=== PATIENT | male | born 1985 | race African-American/Black ===

== ENCOUNTER → 2020-01-01 14:14 | Outpatient (CLI) | payer OTHER, SELFPAY ==
[2020-01-01 14:54] LABS: Alanine Aminotransferase 19 IU/L (<50); Albumin 4.5 g/dL (3.5-5.0); Albumin Globulin Ratio 1.2 (1.0-2.8); Alkaline Phosphatase 70 U/L (38-126); Aspartate Aminotransferase 25 IU/L (17-59); BUN Creatinine Ratio 13.3 (6-22); Bilirubin Total 0.7 mg/dL (0.2-1.3); Blood Urea Nitrogen 14 mg/dL (9-20); Carbon Dioxide 24 mmol/L (22-32); Chloride 108 mmol/L (98-107); Cholesterol 224 mg/dL (140-199); Estimated Glomerular Filt Rate > 60.0 mL/min (>60); Globulin 3.7 g/dL (1.7-4.1); Glucose 89 mg/dL (70-100); HDL Cholesterol 41 mg/dL (40-60); HEMOLYSIS 15 (0-50); LDL Cholesterol Calculated 140 mg/dL (<100); Potassium 4.8 mmol/L (3.4-5.1); Sodium 138 mmol/L (137-145); Total Protein 8.2 g/dL (6.3-8.2); Triglycerides 213 mg/dL (35-150)
== END ==
PROVIDERS: PCP Internal Medicine; Referring Provider Internal Medicine; Visit Provider Internal Medicine
DX: Z13.1 Encounter for screening for diabetes mellitus (principal); Z13.220 Encounter for screening for lipoid disorders; Z13.6 Encounter for screening for cardiovascular disorders
CPT/HCPCS: 36415; 80053; 80061

== ENCOUNTER → 2020-03-08 08:58 | Outpatient (CLI) | payer OTHER, SELFPAY ==
[2020-03-08 13:34] LABS: COVID19 -Nasal RAPID Negative (Negative)
== END ==
PROVIDERS: PCP Internal Medicine; Visit Provider Physician Assistant
DX: Z01.812 Encounter for preprocedural laboratory examination (principal)
CPT/HCPCS: 87635

== ENCOUNTER 2020-03-11 06:36 | Day surgery (SDC) | payer OTHER, SELFPAY ==
[2020-03-07 11:47] VITALS: BMI 40.3
[2020-03-11 07:07] VITALS: BP 148/94; PULSE 88; RESP 16; TEMP 37.1; O2SAT 100; BMI 40.3
--- NOTE | 2020-03-11 07:18 | PM.PREOP ---
Pre-operative Note Interval Note History & Physical reviewed/Exam performed by Physician: Yes Changes to H&P: No
[2020-03-11] MEDS: LACTATED RINGERS 1,000 ML 42 ML IV ×2 (07:20→08:23)
--- NOTE | 2020-03-11 07:20 | SUR.OPER ---
Supine on padded OR bed, head on pillow, arms secured on padded arm boards at <90 degrees abduction, legs uncrossed, safety belt at thigh, tape over blanket over lower legs.
[2020-03-11] MEDS: CEFAZOLIN VIAL 3 GM in SODIUM CHLORIDE 0.9% 100 ML 200 ML IV (07:40)
[2020-03-11] MEDS: BUPIVACAINE LIPOSOME 266 MG/20 ML VIAL INJ (07:55)
[2020-03-11] MEDS: BACITRACIN OINT 0.9 GM PCKT 2 APPLIC TOP (08:37)
--- NOTE | 2020-03-11 08:43 | PM.OP.1 ---
Operative Date/Time/Diagnoses Date of procedure: 03/11/20 Time of procedure: 08:43 Pre-op diagnosis: 1. Phimosis 2. Balanitis Post-op diagnosis: same Procedure & Clinicians Procedure: 1. Adult circumcision Same procedure as scheduled: Yes Indications: 1. Phimosis 2. Balanitis Surgeon: Mya Rosas Click Yes if Unassisted: Yes Anesthesia Type: General and Local (1.33% Exparel) Operative Notes Findings: Acute and chronic inflammatory changes of the glans and inner preputial skin surfaces. Closure Type: primary Specimen(s): none sent Estimated Blood Loss (mL): 5 Blood products transfused: none Tourniquet time (min): 0 Procedure in detail: Patient was positioned supine was administered general anesthesia. The abdomen genitalia and groin were then prepped and draped in sterile fashion. A dorsal penile and circumferential cutaneous block was then performed with local anesthetic. Next, circumcised incisions were made at appropriate locations on the inner and external preputial skin surfaces. The intervening subcutaneous tissue was using a combination of blunt and cautery technique. Hemostasis was attained with electrocautery. Using 4-0 chromic for interrupted approximating sutures were placed at the 12, 3, 6, and 9 o'clock positions. Then the same suture was used to reapproximate the inner and external preputial skin edges utilizing a running vertical mattress. A multilayer dressing was applied as follows: An inner layer around the incision of Xeroform, followed by a non constricting wrap of Kerlix gauze, followed by a non constricting layer of Coban, and then finally 1 in clear plastic tape and a non constricting manner to adhere and stabilize the previous layers. The patient was then awakened, transferred to [facility], and transported to recovery room. Complications: none Post-operative Condition: stable Disposition: PACU Plan for aftercare: Discharge home
[2020-03-11 08:47] VITALS: BP 107/73; PULSE 96; RESP 20; TEMP 36.3; O2SAT 90
[2020-03-11 08:52] VITALS: BP 121/82; PULSE 94; RESP 25; O2SAT 97
[2020-03-11 08:57] VITALS: BP 124/86; PULSE 97; RESP 19; O2SAT 97
[2020-03-11 09:13] VITALS: BP 132/86; PULSE 92; RESP 15; TEMP 36.6; O2SAT 100
--- NOTE | 2020-03-11 09:15 | SUR.PHASEI ---
Pt arrived to PACU initially needing chin support for patency of airway, also nasal cannula 02 added. pt now awake no pain no nausea, ride called as requested.
[2020-03-11 09:18] VITALS: BP 148/88; PULSE 86; RESP 14; TEMP 36.4; O2SAT 98
[2020-03-11] MEDS: OXYCODONE/ACETAMINOPHEN 5/325 TABLET 1 TAB PO (09:32)
--- NOTE | 2020-03-11 09:54 | SUR.PHASEII ---
D/C instructions discussed, awaiting ride to pick him up. Medicated with pain med. Dressing remained c/d/i.
--- NOTE | 2020-03-11 09:59 | SUR.PHASEII ---
Ride home arrived, pt left in stable condition.
== END 2020-03-11 09:59 | disposition home or self-care (01) ==
PROVIDERS: PCP Internal Medicine; Referring Provider Internal Medicine; Visit Provider Specialist
PROC: (CPT 54161; principal; 2020-03-11 07:45)
DX: N47.1 Phimosis (principal); N48.1 Balanitis; E66.9 Obesity, unspecified; Z68.41 Body mass index [BMI] 40.0-44.9, adult
CPT/HCPCS: 54161; C9290; J0690; J1100; J2405; J2704; J3010

== ENCOUNTER → 2021-07-31 16:44 | Outpatient (CLI) | payer OTHER, SELFPAY ==
[2021-07-31 18:25] LABS: Cholesterol 319 mg/dL (140-199); HDL Cholesterol 40 mg/dL (40-60); Triglycerides 402 mg/dL (35-150)
== END ==
PROVIDERS: PCP Internal Medicine; Referring Provider Internal Medicine; Visit Provider Internal Medicine
DX: E78.5 Hyperlipidemia, unspecified (principal)
CPT/HCPCS: 36415; 80061

== ENCOUNTER → 2022-10-24 13:51 | Outpatient (CLI) | payer OTHER, SELFPAY ==
[2022-10-24 15:06] LABS: Alanine Aminotransferase 22 IU/L (<50); Albumin 4.1 g/dL (3.5-5.0); Albumin Globulin Ratio 1.1 (1.0-2.8); Alkaline Phosphatase 97 U/L (38-126); Aspartate Aminotransferase 26 IU/L (17-59); BUN Creatinine Ratio 8.9 (6-22); Bilirubin Total 0.7 mg/dL (0.2-1.3); Blood Urea Nitrogen 8 mg/dL (9-20); Calcium 9.7 mg/dL (8.4-10.2); Carbon Dioxide 26 mmol/L (22-32); Chloride 100 mmol/L (98-107); Cholesterol 310 mg/dL (140-199); Estimated Glomerular Filt Rate > 60 mL/min (>60); Globulin 3.6 g/dL (1.7-4.1); Glucose 331 mg/dL (70-100); HDL Cholesterol 41 mg/dL (40-60); LDL Cholesterol Calculated 196 mg/dL (<100); Magnesium 1.7 mg/dL (1.6-2.3); Sodium 135 mmol/L (137-145); Total Protein 7.7 g/dL (6.3-8.2); Triglycerides 364 mg/dL (35-150)
[2022-10-24 15:16] LABS: LDL Cholesterol Direct 156 mg/dL (<100)
[2022-10-24 15:24] LABS: HEMOLYSIS 77 (0-50)
[2022-10-24 15:26] LABS: Potassium 4.3 mmol/L (3.4-5.1)
[2022-10-24 16:21] LABS: TSH w/ Reflex to FT4 1.93 uIU/mL (0.47-4.68)
[2022-11-08 05:39] LABS: Testosterone Total 431.1 ng/dL (264.0-916.0)
== END ==
PROVIDERS: PCP Internal Medicine; Referring Provider Internal Medicine; Visit Provider Internal Medicine
DX: E78.5 Hyperlipidemia, unspecified (principal); Z13.1 Encounter for screening for diabetes mellitus; I10 Essential (primary) hypertension; E03.9 Hypothyroidism, unspecified
CPT/HCPCS: 36415; 80053; 80061; 83721; 83735; 84402; 84403; 84443

== ENCOUNTER → 2022-10-29 16:58 | Outpatient (CLI) | payer OTHER, SELFPAY ==
[2022-10-29 18:36] LABS: Creatinine Urine Random 194.8 mg/dL
[2022-10-29 18:41] LABS: Microalbumi Creatinin Ratio Ur 8.2 ug/mg CR (<30); Microalbumin Urine Random 1.6 mg/dL (0-1.6)
[2022-10-30 07:10] LABS: Labcorp Hemoglobin (Hb) A1c 15.4 % (4.8-5.6)
== END ==
PROVIDERS: PCP Internal Medicine; Referring Provider Internal Medicine; Visit Provider Internal Medicine
DX: E11.69 Type 2 diabetes mellitus with other specified complication (principal); E66.9 Obesity, unspecified
CPT/HCPCS: 82043; 82570; 83036

== ENCOUNTER → 2022-11-12 16:33 | Outpatient (CLI) | payer OTHER, SELFPAY ==
[2022-11-19 07:54] LABS: Percent Free Testosterone 3.59 % (1.50-4.20); Testosterone Free 9.22 ng/dL (5.00-21.00); Testosterone Total 256.7 ng/dL (264.0-916.0)
== END ==
PROVIDERS: PCP Internal Medicine; Referring Provider Internal Medicine; Visit Provider Internal Medicine
DX: E29.1 Testicular hypofunction (principal)
CPT/HCPCS: 36415; 84402; 84403

== ENCOUNTER → 2023-02-06 15:11 | Outpatient (CLI) | payer OTHER, SELFPAY ==
[2023-02-06 15:52] LABS: Blood Urea Nitrogen 14 mg/dL (9-20); Calcium 9.7 mg/dL (8.4-10.2); Carbon Dioxide 25 mmol/L (22-32); Chloride 106 mmol/L (98-107); Estimated Glomerular Filt Rate > 60 mL/min (>60); Glucose 97 mg/dL (70-100); HEMOLYSIS < 15 (0-50); Potassium 4.6 mmol/L (3.4-5.1); Sodium 138 mmol/L (137-145)
== END ==
PROVIDERS: PCP Internal Medicine; Referring Provider Internal Medicine; Visit Provider Internal Medicine
DX: E11.69 Type 2 diabetes mellitus with other specified complication (principal); E66.9 Obesity, unspecified; E78.5 Hyperlipidemia, unspecified
CPT/HCPCS: 36415; 80048; 83036

== ENCOUNTER → 2023-05-23 17:04 | Outpatient (CLI) | payer OTHER, SELFPAY ==
[2023-05-23 17:30] LABS: Hemoglobin A1C% w Est Avg Glu 6.2 % (4.0-6.0)
[2023-05-23 17:46] LABS: BUN Creatinine Ratio 14.3 (6-22); Blood Urea Nitrogen 15 mg/dL (9-20); Calcium 9.7 mg/dL (8.4-10.2); Carbon Dioxide 24 mmol/L (22-32); Chloride 106 mmol/L (98-107); Estimated Glomerular Filt Rate > 60 mL/min (>60); Glucose 116 mg/dL (70-100); HEMOLYSIS 32 (0-50); Potassium 4.2 mmol/L (3.4-5.1); Sodium 138 mmol/L (137-145)
== END ==
PROVIDERS: PCP Internal Medicine; Referring Provider Internal Medicine; Visit Provider Internal Medicine
DX: E11.69 Type 2 diabetes mellitus with other specified complication (principal); E66.9 Obesity, unspecified
CPT/HCPCS: 36415; 80048; 83036

== ENCOUNTER → 2023-11-16 12:11 | Outpatient (CLI) | payer OTHER, SELFPAY ==
[2023-11-16 13:27] LABS: Hemoglobin A1C% w Est Avg Glu 6.6 % (4.0-6.0)
[2023-11-16 14:10] LABS: HEMOLYSIS < 15 (0-50)
[2023-11-16 14:15] LABS: Alanine Aminotransferase 21 IU/L (<50); Albumin 4.1 g/dL (3.5-5.0); Albumin Globulin Ratio 1.1 (1.0-2.8); Alkaline Phosphatase 81 U/L (38-126); Aspartate Aminotransferase 25 IU/L (17-59); BUN Creatinine Ratio 17.1 (6-22); Bilirubin Total 0.6 mg/dL (0.2-1.3); Blood Urea Nitrogen 18 mg/dL (9-20); Calcium 9.8 mg/dL (8.4-10.2); Carbon Dioxide 28 mmol/L (22-32); Chloride 107 mmol/L (98-107); Cholesterol 278 mg/dL (140-199); Estimated Glomerular Filt Rate > 60 mL/min (>60); Globulin 3.8 g/dL (1.7-4.1); Glucose 105 mg/dL (70-100); HDL Cholesterol 45 mg/dL (40-60); LDL Cholesterol Calculated 169 mg/dL (<100); Sodium 139 mmol/L (137-145); Total Protein 7.9 g/dL (6.3-8.2); Triglycerides 321 mg/dL (35-150)
[2023-11-16 14:17] LABS: Creatinine Urine Random 125.96 mg/dL
[2023-11-16 14:20] LABS: Potassium 5.4 mmol/L (3.4-5.1)
[2023-11-16 14:23] LABS: Microalbumin Urine Random 1.5 mg/dL (0-1.6)
[2023-11-18 15:29] LABS: LDL Cholesterol Direct 116 mg/dL (<100)
== END ==
LOC: LAB 12:12
PROVIDERS: PCP Internal Medicine; Referring Provider Internal Medicine; Visit Provider Internal Medicine
DX: E78.5 Hyperlipidemia, unspecified (principal); E11.69 Type 2 diabetes mellitus with other specified complication; E66.9 Obesity, unspecified
CPT/HCPCS: 36415; 80053; 80061; 82043; 82570; 83036; 83721; 84402; 84403

== ENCOUNTER → 2024-05-15 17:42 | Outpatient (CLI) | payer BC, SELFPAY ==
[2024-05-15 18:16] LABS: Alanine Aminotransferase 52 IU/L (<50); Albumin 4.5 g/dL (3.5-5.0); Albumin Globulin Ratio 1.4 (1.0-2.8); Alkaline Phosphatase 74 U/L (38-126); Aspartate Aminotransferase 190 IU/L (17-59); BUN Creatinine Ratio 13.8 (6-22); Bilirubin Total 0.7 mg/dL (0.2-1.3); Blood Urea Nitrogen 16 mg/dL (9-20); Calcium 10.1 mg/dL (8.4-10.2); Carbon Dioxide 28 mmol/L (22-32); Chloride 103 mmol/L (98-107); Cholesterol 281 mg/dL (140-199); Estimated Glomerular Filt Rate > 60 mL/min (>60); Globulin 3.2 g/dL (1.7-4.1); Glucose 125 mg/dL (70-100); HDL Cholesterol 38 mg/dL (40-60); HEMOLYSIS 19 (0-50); LDL Cholesterol Calculated 169 mg/dL (<100); Potassium 4.6 mmol/L (3.4-5.1); Sodium 137 mmol/L (137-145); Total Protein 7.7 g/dL (6.3-8.2); Triglycerides 371 mg/dL (35-150)
[2024-05-15 18:17] LABS: Hemoglobin A1C% w Est Avg Glu 8.2 % (4.0-6.0)
[2024-05-15 18:27] LABS: LDL Cholesterol Direct 126 mg/dL (<100)
== END ==
LOC: LAB 17:42
PROVIDERS: PCP Internal Medicine; Referring Provider Internal Medicine; Visit Provider Internal Medicine
DX: E11.69 Type 2 diabetes mellitus with other specified complication (principal); E66.9 Obesity, unspecified; E78.5 Hyperlipidemia, unspecified
CPT/HCPCS: 36415; 80053; 80061; 83036; 83721

== ENCOUNTER → 2024-07-28 16:31 | Outpatient (CLI) | payer BC, SELFPAY ==
[2024-07-28 17:33] LABS: Creatinine Urine Random 214.48 mg/dL
[2024-07-28 17:37] LABS: Microalbumin Urine Random 1.9 mg/dL (0-1.6)
[2024-07-28 18:23] LABS: Hemoglobin A1C% w Est Avg Glu 6.6 % (4.0-6.0)
[2024-07-28 18:27] LABS: Alanine Aminotransferase 30 IU/L (<50); Albumin 4.6 g/dL (3.5-5.0); Albumin Globulin Ratio 1.2 (1.0-2.8); Alkaline Phosphatase 74 U/L (38-126); Aspartate Aminotransferase 34 IU/L (17-59); BUN Creatinine Ratio 16.4 (6-22); Bilirubin Total 0.6 mg/dL (0.2-1.3); Blood Urea Nitrogen 18 mg/dL (9-20); Calcium 9.7 mg/dL (8.4-10.2); Carbon Dioxide 21 mmol/L (22-32); Chloride 107 mmol/L (98-107); Cholesterol 186 mg/dL (140-199); Estimated Glomerular Filt Rate > 60 mL/min (>60); Globulin 3.8 g/dL (1.7-4.1); Glucose 103 mg/dL (70-100); HDL Cholesterol 43 mg/dL (40-60); HEMOLYSIS 26 (0-50); LDL Cholesterol Calculated 99 mg/dL (<100); Potassium 4.5 mmol/L (3.4-5.1); Sodium 140 mmol/L (137-145); Total Protein 8.4 g/dL (6.3-8.2); Triglycerides 218 mg/dL (35-150)
[2024-07-28 18:38] LABS: LDL Cholesterol Direct 83 mg/dL (<100)
== END ==
PROVIDERS: PCP Internal Medicine; Referring Provider Internal Medicine; Visit Provider Internal Medicine
DX: E11.69 Type 2 diabetes mellitus with other specified complication (principal); E78.5 Hyperlipidemia, unspecified; E66.9 Obesity, unspecified
CPT/HCPCS: 36415; 80053; 80061; 82043; 82570; 83036; 83721

== ENCOUNTER → 2025-03-01 17:54 | Outpatient (CLI) | payer BC, SELFPAY ==
[2025-03-01 18:40] LABS: Hemoglobin A1C% w Est Avg Glu 13.3 % (4.0-6.0)
[2025-03-01 18:55] LABS: Alanine Aminotransferase 17 IU/L (<50); Albumin 4.5 g/dL (3.5-5.0); Albumin Globulin Ratio 1.5 (1.0-2.8); Alkaline Phosphatase 88 U/L (38-126); Blood Urea Nitrogen 14 mg/dL (9-20); Calcium 10.5 mg/dL (8.4-10.2); Carbon Dioxide 26 mmol/L (22-32); Chloride 101 mmol/L (98-107); Cholesterol 267 mg/dL (140-199); Estimated Glomerular Filt Rate > 60 mL/min (>60); Globulin 3.1 g/dL (1.7-4.1); Glucose 240 mg/dL (70-99); HDL Cholesterol 47 mg/dL (40-60); HEMOLYSIS < 15 (0-50); Potassium 4.4 mmol/L (3.4-5.1); Sodium 135 mmol/L (137-145); Total Protein 7.6 g/dL (6.3-8.2); Triglycerides 280 mg/dL (35-150)
== END ==
PROVIDERS: PCP Internal Medicine; Referring Provider Internal Medicine; Visit Provider Internal Medicine
DX: E11.69 Type 2 diabetes mellitus with other specified complication (principal); E66.9 Obesity, unspecified; E78.5 Hyperlipidemia, unspecified; E66.01 Morbid (severe) obesity due to excess calories
CPT/HCPCS: 36415; 80053; 80061; 83036

== ENCOUNTER → 2025-04-09 15:03 | Outpatient (CLI) | payer BC, SELFPAY ==
--- NOTE | 2025-05-04 08:48 | DIAB.MNT ---
Initial Diabetes Medical Nutrition Therapy Assessment Name: Jose Pina Date: 04/09/25 Time: 310-4p Dx: Type II Diabetes Provider: Alayna Garcia presents for initial DM visit. Dx 2-3 years ago per report. Recent hgA1c of 13.3% 02/2025. FH of Dm with both parents Attributes elevated hgA1c to eating during work turnaround hours. States he would eat at work during these long shifts, ie pizza/teriyaki. Also endorses increased OJ intake at that time. During that time endorses increased urination, thirst, dry mouth and reduced wt unintentionally. Works shift work. Since then has made some diet changes. States he is aware of how to eat lower CHO. Plans for another turnaround at work in June. During this time, cooking meals is difficult. Usually only eats 1-2x per day on regular schedule. Does not like to eat out much. Endorses eating fast food occasionally. Will order burger, fries and regular soda OR 2 tacos with [place] pizza and chix quesadilla. Snacks include peanuts, tries to avoid candy. UTD on eye appt Diet recall: 1st meal: chx with broccoli OR chx noodles soup OR salmon with broccoli 2nd meal: same Anthropometrics: Ht: 69 Wt: 256.7# 02/2025 Weight history: Physical Activity: has a home gym but using less often lately; was 4-5 days per week. Self-Monitoring Blood Glucose: None, no supplies. RD messaged PCP workgroup for supplies. Date Pre Post Pre Post Pre Post HS Diabetes Medications: 1000mg Metformin BID Pertinent Labs: hgA1c: 13.3% 02/2025 Past Medical History: (Last Updated 11/18/23 @ 10:36 by Krzysztof Catalan MD) Acquired phimosis of penis Balanitis Diabetes mellitus type 2 in obese Elevated blood pressure reading in office with white coat syndrome, without diagnosis of hypertension Excessive daytime sleepiness Hyperlipidemia triglycerides primarily Morbid obesity Obesity (BMI 30-39.9) Obstructive sleep apnea of adult Nutrition Rx: Carbohydrates: Meal:45g Snack:15-30g Nutrition Diagnosis: - Excessive CHO intake r/t changes in his schedule and eating out aeb pt report and hgA1c of 13.3% - Physical inactivity r/t stage of change contemplative aeb pt report Intervention: This participant was very receptive. Provided appropriate educational handouts. Discussed the following topics: Completed intake assessment. HgA1c, its correlation to blood glucose numbers, and rationale for goal Importance of self-monitoring, how often, and when to check. Suggested checking at different times to evaluate meals Plate Method, impact of macronutrients on blood sugar, meal timing, carbohydrate counting, pairing macronutrients and spreading out carbohydrates for better blood glucose management Recommended servings for carbohydrates at meals and snacks Heart health nutrition Brainstormed appropriate meal ideas plan based on food preferences Role of physical activity Created SMART goals for patient self-care and success. Goals: Start checking BG Avoid sugar beverages Follow-up: ROSANNE CANO follow-up in 2-3 weeks Lala Waggoner RDN, [facility] Certified Diabetes Care and Ingredient Scaler Helper P: [phone] Thank you for this referral
== END ==
LOC: DIET 15:04
PROVIDERS: PCP Internal Medicine; Referring Provider Internal Medicine
DX: E11.9 Type 2 diabetes mellitus without complications (principal); Z71.3 Dietary counseling and surveillance; Z79.84 Long term (current) use of oral hypoglycemic drugs; Z83.3 Family history of diabetes mellitus
CPT/HCPCS: 97802

== ENCOUNTER → 2025-05-04 10:54 | Outpatient (CLI) | payer BC, SELFPAY ==
--- NOTE | 2025-05-04 11:03 | DIAB.MNTFU ---
Follow-up Diabetes Medical Nutrition Therapy Assessment Name: Jose Pina Date: 05/04/25 Time: 1110a-12p Dx: Type II Diabetes Provider: Alayna Garcia presents for follow-up DM visit. Dx 2-3 years ago per report. Recent hgA1c of 13.3% 02/2025. FH of Dm with both parents. Endorses eating out 1-2x per week. Eating out often higher in CHO intake, ie 90-100g+ per meal. Started checking FBG. Most in goal. One elevated due to high CHO intake evening before with sweets craving. Eating 1x per day per report and is usually satisfied with this, +/- snacks. Endorses potential for a pre made meal delivery program. Choosing lower CHO options, though some are higher in fat and he has h/o elevated cholesterol. Reports premade meals will be especially helpful during June work schedule. Has questions about ETOH and BG. Endorses 2-4 beers in a sitting. Avoiding sugar beverages. UTD on eye appt Anthropometrics: Ht: 69 Wt: 256.7# 02/2025 Weight history: Physical Activity: has a home gym but using less often lately; was 4-5 days per week. Interested in restarting in May. Self-Monitoring Blood Glucose: Started checking FBG. 3/4 elevated. Date Pre Post Pre Post Pre Post HS 04/26 131 04/28 93 04/30 103 05/01 107 05/02 115 05/03 135 05/04 170 Diabetes Medications: 1000mg Metformin BID Pertinent Labs: hgA1c: 13.3% 02/2025 Past Medical History: (Last Updated 11/18/23 @ 10:36 by Krzysztof Catalan MD) Acquired phimosis of penis Balanitis Diabetes mellitus type 2 in obese Elevated blood pressure reading in office with white coat syndrome, without diagnosis of hypertension Excessive daytime sleepiness Hyperlipidemia triglycerides primarily Morbid obesity Obesity (BMI 30-39.9) Obstructive sleep apnea of adult Nutrition Rx: Carbohydrates: Meal:45gSnack:15-30g Nutrition Diagnosis: - Excessive CHO intake r/t changes in his schedule and eating out aeb pt report and hgA1c of 13.3%- improved/in progress - Physical inactivity r/t stage of change contemplative aeb pt report - in progress - Excessive CHO intake r/t eating out nutrition knowledge deficit aeb reported 90+ grams CHO at meal- new Intervention: This participant was very receptive. Provided appropriate educational handouts. Discussed the following topics: Review of BG. Suggested checking at different times to evaluate meals Eating out strategies CHO in foods he orders and ways to reduce portions and spread out CHO. Heart health nutrition and cholesterol labs Brainstormed appropriate meal ideas plan based on food preferences ETOH and BG impact Strategies for premade meals and work schedule. Encouraged heart healthy choices. Created SMART goals for patient self-care and success. Goals: Start checking BG- met Avoid sugar beverages - met Take half home when eating out- new Check a few 1-2 hour pc readings- new Follow-up: ROSANNE CANO follow-up in 3-4 weeks Lala Waggoner RDN, [place] Certified Diabetes Care and Transport Driver P: [phone] Thank you for this referral
== END ==
LOC: DIET 10:54
PROVIDERS: PCP Internal Medicine; Referring Provider Internal Medicine
DX: E11.9 Type 2 diabetes mellitus without complications (principal); Z71.3 Dietary counseling and surveillance; Z83.3 Family history of diabetes mellitus; Z79.84 Long term (current) use of oral hypoglycemic drugs
CPT/HCPCS: 97803